=== PATIENT | female | born 1965 | race Caucasian/White ===

== ENCOUNTER 2018-10-09 21:43 | Emergency (ER) | payer BC ==
[~2018-10-09] VITALS: Ht 162.6 cm; Wt 84.1 kg
[2018-10-09 23:30] VITALS: BP 107/72
== END 2018-10-09 23:30 | disposition home or self-care (01) ==
LOC: ED 21:43
DX: S60.041A Contusion of right ring finger without damage to nail, initial encounter (principal); W23.0XXA Caught, crushed, jammed, or pinched between moving objects, initial encounter; Y92.009 Unspecified place in unspecified non-institutional (private) residence as the place of occurrence of the external cause

== ENCOUNTER → 2021-11-12 | Outpatient (CLI) | payer BC ==
[2021-11-12 10:19] LABS: BASO # 0.04 K/mm3 (0.02-0.10); EOS # 0.13 K/mm3 (0.04-0.40); EOS % 2.4 % (1.0-5.0); HEMATOCRIT 42.1 % (37.0-47.0); HEMOGLOBIN 13.6 g/dL (12.5-16.0); LYMPH# 1.31 K/mm3 (1.50-4.00); MEAN CELL VOLUME 96 fl (78-100); MEAN CORPUSCULAR HEMOGLOBIN 31 pg (27-31); MEAN CORPUSCULAR HGB CONC 32 g/dL (33-37); MEAN PLATELET VOLUME 9.4 fl (7.4-10.4); MONO # 0.35 K/mm3 (0.20-0.80); NEU # 3.55 K/mm3 (1.40-6.50); PLATELET COUNT 299 K/mm3 (130-400); RED BLOOD COUNT 4.39 M/mm3 (4.10-5.30); RED CELL DISTRIBUTION WIDTH 12.5 % (11.5-14.5); WHITE BLOOD COUNT 5.4 K/mm3 (4.8-10.8)
[2021-11-12 10:31] LABS: ALBUMIN 4.1 g/dL (3.5-5.0); POTASSIUM 4.3 mmol/L (3.5-5.1)
[2021-11-12 10:32] LABS: CALCIUM 9.6 mg/dL (8.3-10.5)
[2021-11-12 10:34] LABS: TOTAL PROTEIN 7.4 g/dL (6.4-8.3)
[2021-11-12 10:36] LABS: TOTAL BILIRUBIN 0.4 mg/dL (0.2-1.2)
[2021-11-12 23:08] LABS: FOLLICLE STIMULATING HORMONE 87.6 mIU/mL (()); LUTENIZING HORMONE 25.3 mIU/mL (()); PROGESTERONE 0.2 ng/mL (())
[2021-11-19 15:58] LABS: ESTRONE (E1) LEVEL 33 pg/mL (())
== END ==
LOC: LAB 09:16
PROVIDERS: Family Medicine
DX: Z12.11 Encounter for screening for malignant neoplasm of colon (principal); Z12.31 Encounter for screening mammogram for malignant neoplasm of breast; Z00.00 Encounter for general adult medical examination without abnormal findings; E78.5 Hyperlipidemia, unspecified; E66.9 Obesity, unspecified; E55.9 Vitamin D deficiency, unspecified; E03.9 Hypothyroidism, unspecified; N91.1 Secondary amenorrhea

== ENCOUNTER 2023-03-29 16:17 | Emergency (ER) | payer BC ==
[~2023-03-29] VITALS: Ht 162.6 cm; Wt 81.8 kg
[2023-03-29 18:00] VITALS: BP 129/109
== END 2023-03-29 18:01 | disposition home or self-care (01) ==
LOC: ED 16:17
DX: K59.00 Constipation, unspecified (principal)